=== PATIENT | male | born 1950 | race Two or more races ===

== ENCOUNTER 2019-07-04 14:39 | Outpatient (CLI) | payer MEDICARE, MEDICAID ==
[~2019-07-04] VITALS: Ht 177.8 cm; Wt 114.3 kg
[2019-07-04 15:42] VITALS: BP 119/62
[2019-07-04] MEDS ORDERED: UNOBMED (15:42)
--- NOTE | 2019-07-05 01:00 | Consultation ---
DATE OF CONSULTATION: 07/04/2019 CHIEF COMPLAINT: Endoscopy and colonoscopy. PAST MEDICAL HISTORY: 1. Arthritis. 2. Colon polyps. 3. Gastritis. 4. Hypertension. 5. Diabetes. 6. Hypercholesterolemia. PAST SURGICAL HISTORY: surgery x2, lumbar surgery, shoulder surgery, knee surgery. MEDICATIONS: Please see medication reconciliation list. FAMILY HISTORY: Noncontributory. SOCIAL HISTORY: The patient denies any tobacco, alcohol, or drug abuse. ALLERGIES: Questionable to ketorolac. REVIEW OF SYSTEMS: Positive for abdominal pain and diarrhea. PHYSICAL EXAMINATION: VITAL SIGNS: Temperature 98.9, blood pressure 119/62, pulse is 110, respirations 20. HEENT: Normocephalic and atraumatic. Sclerae anicteric. NECK: Supple. No evidence of obvious lymphadenopathy. CARDIOVASCULAR: Regular rate and rhythm. Plus S1 and S2. No obvious murmur. LUNGS: Clear to auscultation bilaterally. ABDOMEN: Positive bowel sounds. Soft and nontender. No rebound. No guarding. No peritoneal sign. EXTREMITIES: No cyanosis. No clubbing. No edema. ASSESSMENT/PLAN: The patient is a 69-year-old male with past medical history of colonic polyps. Last colonoscopy over 10 years, referred for screening colon, also complaining of chronic GERD. The patient is scheduled for endoscopy and colonoscopy on July 13, 2019. The patient was given instruction for colonoscopy. The procedure was explained to him, the risks and benefits explained. The patient to come on July 13, 2019. I want to thank Dr. Jay for this kind referral. Finesse Babcock M.D. DR: Galilea JOB#: [id number] CC: Wero Jay M.D.
== END 2019-07-04 16:00 | disposition home or self-care (01) ==
LOC: PAN 14:39
DX: K21.9 Gastro-esophageal reflux disease without esophagitis (principal); M19.90 Unspecified osteoarthritis, unspecified site; Z86.010 Personal history of colon polyps; I10 Essential (primary) hypertension; E11.9 Type 2 diabetes mellitus without complications; E78.00 Pure hypercholesterolemia, unspecified

== ENCOUNTER 2019-07-13 11:31 | Day surgery (SDC) | payer MEDICARE, MEDICAID ==
[2019-07-13] VITALS (8 sets, daily range): BP systolic 94–109; BP diastolic 46–70
[~2019-07-13] VITALS: Ht 177.8 cm; Wt 104.3 kg
[~2019-07-13 11:31] MED LIST: LR 1000ml 1,000 ML IV SCH; UNOBMED
[2019-07-13] MEDS ORDERED: LR 1000ml 1,000 ML IVLG SCH (12:14)
[2019-07-13] MEDS ORDERED: Midazolam 2mg/2ml Inj IVP PRN (12:15)
[2019-07-13] MEDS ORDERED: DiphenhydrAMINE 50mg/ml Inj IVP PRN (12:15)
[2019-07-13] MEDS ORDERED: fentaNYL 100 mcg/2 mL IV PRN (12:15)
[2019-07-13] MEDS ORDERED: Atropine Inj 1mg/10ml Syr IV PRN (12:15)
--- NOTE | 2019-07-13 12:19 | Anethesia Preoperative Eval ---
Anesthesia Pre-op PMH/ROS General Date of Evaluation: Jul 13, 2019 Time of Evaluation: 12:02 Anesthesiologist: kate ASA Score: ASA 3 Mallampati Score Class I : Soft palate, uvula, fauces, pillars visible Class II: Soft palate, uvula, fauces visible Class III: Soft palate, base of uvula visible Class IV: Only hard plate visible Mallampati Classification: Class II Surgeon: rylan Diagnosis: gerd Surgical Procedure: egd/colonoscopy Anesthesia History: none Social History: smoking - nonsmoker Family History: no anesthesia problems Allergies: Coded Allergies: No Known Allergies (Unverified , 07/04/19) Medications: see eMAR Patient NPO?: Yes Past Medical History Cardiovascular: Reports: HTN, other - hypercholesterolemia Gastrointestinal/Genitourinary: Reports: GERD, other - colon polyps Neurologic/Psychiatric: Reports: depression/anxiety Endocrine: Reports: DM Musculoskeletal/Integumentary: Reports: OA Anesthesia Pre-op Phys. Exam Physician Exam Constitutional: NAD Neurologic: CN 2-12 intact Cardiovascular: RRR Respiratory: CTA Gastrointestinal: S/NT/ND Airway Exam Mallampati Score: Class II MO: limited Neck: flexible TMD: 2fb ROM: limited Anesthesia Pre-op A/P Studies Pre-op Studies: EKG - unusual p axis, possible ectopic atrial tachycardia with premature supraventricular complexes, lateral infarct Risk Assessment & Plan Assessment: asa3 Plan: mac Status Change Before Surgery: No - patient reports fall trauma 5 days prior to procedure. seen by emergency room doctor. denied loc, altered mental staus. was walking without cane and had a mis-step. patient with large flat ecchymotic lesion on right hip. Pre-Antibiotics Drug: Lisa Myrick MD Jul 13, 2019 12:19
[2019-07-13] MEDS ORDERED: Phenylephrine 10mg/ml Vial ONE (12:30)
[2019-07-13] MEDS ORDERED: Propofol 200mg/20ml IV ONE (12:30)
[2019-07-13] MEDS ORDERED: Lidocaine 1% MPF 10mg/ml 5ml ONE (12:30)
[2019-07-13] MEDS ORDERED: LR 1000ml ONE (12:30)
--- NOTE | 2019-07-13 12:46 | Short Stay Surgery H&P ---
History of Present Illness History of Present Illness Chief Complaint see recent office note HPI Karine Weaver is a 69 year old male who was admitted on for Gerd, Colonoscopy Screening Patient History Allergies: Coded Allergies: No Known Allergies (Unverified , 07/04/19) Medication History Miscellaneous Medications Unable to Obtain Medications (Unable To Obtain Meds), (Reported) Plan Attestation Are the patient's medical conditions optimized for surgery? Finesse Babcock MD Jul 13, 2019 12:46
--- NOTE | 2019-07-13 12:46 | Pre-Procedure Note/Attestation ---
Pre-Procedure Note/Attestation Complete Prior to Procedure Planned Procedure: not applicable Procedure Narrative: esophagogastroduodenoscopy and colonoscopy Indications for Procedure Pre-Operative Diagnosis: screening colon, GERD Attestation I attest that I discussed the nature of the procedure; its benefits; risks and complications; and alternatives (and the risks and benefits of such alternatives ), prior to the procedure, with the patient (or the patient's legal employer relations representative). I attest that, if there was a reasonable possibility of needing a blood transfusion, the patient (or the patient's legal employer relations representative) was given the [facility] standardized written summary, pursuant to the [place] Blood Safety Act ([place] Health and Safety Code # 1645, as amended). I attest that I re-evaluated the patient just prior to the surgery and that there has been no change in the patient's H&P, except as documented below: Finesse Babcock MD Jul 13, 2019 12:46
--- NOTE | 2019-07-13 12:47 | Endoscopy Procedure Note ---
Endoscopy Procedure Note General Indication for Procedure: screening colon, GERD Procedures Performed: EGD, colonoscopy Operative Findings/Diagnosis: gastritis, hemrrhoids Specimen: yes Pt Tolerated Procedure Well: Yes Estimated Blood Loss: none Anesthesia Anesthesiologist: audi Anesthesia: MAC Inserted Devices Implant(s) used?: No Quality Quality of Bowel Preparation: Good Did scope reach the cecum?: Yes Was there any complications?: No GI Core Measures 50 yrs or older w/o bx or poly: No 10yrs. F/U recommended: Yes If not recommended, why?: Above average risk 18 years or older w/prev. colo: No Finesse Babcock MD Jul 13, 2019 12:47
--- NOTE | 2019-07-13 13:45 | Immediate Post-Op Evaluation ---
Immediate Post-Op Evalulation Immediate Post-Op Evalulation Procedure: egd/colonoscopy w/bx Date of Evaluation: Jul 13, 2019 Time of Evaluation: 13:44 IV Fluids: 600ml lr Blood Products: none Estimated Blood Loss: negligible Blood Pressure Systolic: 85 Blood Pressure Diastolic: 43 Pulse Rate: 78 Respiratory Rate: 18 O2 Sat by Pulse Oximetry: 98 Temperature (Fahrenheit): 98.2 Pain Score (1-10): 0 Nausea: No Vomiting: No Complications none Patient Status: awake, reacts, patent Hydration Status: adequate Drug: Lisa Myrick MD Jul 13, 2019 13:45
--- NOTE | 2019-07-13 13:46 | 48 Hour Post Anesthesia Eval ---
Post Anesthesia Evaluation Procedure: egd/colonoscopy w/bx Date of Evaluation: Jul 13, 2019 Time of Evaluation: 13:46 Blood Pressure Systolic: 105 0: 53 Pulse Rate: 86 Respiratory Rate: 18 Temperature (Fahrenheit): 98.2 O2 Sat by Pulse Oximetry: 95 Airway: patent Nausea: No Vomiting: No Pain Intensity: 0 Hydration Status: adequate Cardiopulmonary Status: stable Mental Status/LOC: patient returned to baseline Post-Anesthesia Complications: none Follow-up care needed: N/A Lisa Liang MD Jul 13, 2019 13:46
[2019-07-13] MEDS ORDERED: METFORMIN HCL500 M1 ORAL (14:39)
[2019-07-13] MEDS ORDERED: JANUVIA25 MG ORAL (14:40)
[2019-07-13] MEDS ORDERED: GLIMEPIRIDE4 MG ORAL (14:41)
[2019-07-13] MEDS ORDERED: ACTOS15 MG ORAL (14:41)
[2019-07-13] MEDS ORDERED: FUROSEMIDE40 MG ORAL (14:43)
[2019-07-13] MEDS ORDERED: POTASSIUM CHLOR8 ME2 PO (14:43)
[2019-07-13] MEDS ORDERED: XANAX0.25 MG ORAL (14:45)
[2019-07-13] MEDS ORDERED: MYRBETRIQ50 MG PO (14:49)
[2019-07-13] MEDS ORDERED: FLOMAX0.4 MG ORAL (14:49)
[2019-07-13] MEDS ORDERED: MISOPROSTOL200 MCG PO (14:50)
[2019-07-13] MEDS ORDERED: DICLOFENAC SODI75 MG ORAL (14:53)
[2019-07-13] MEDS ORDERED: FLUTICASONE PRO16 G1 NASAL (14:55)
[2019-07-13] MEDS ORDERED: ALBUTEROL SULF8.5 GM INH (14:57)
[2019-07-13] MEDS ORDERED: VENTOLIN HFA18 GM INH (14:58)
[2019-07-13] MEDS ORDERED: OMEPRAZOLE40 M1 ORAL (14:58)
[2019-07-13] MEDS ORDERED: BREO ELLIPTA 21 EACH IH (15:14)
[2019-07-13] MEDS ORDERED: PAZEO2.5 ML OP (15:15)
[2019-07-13] MEDS ORDERED: LYRICA75 M1 ORAL (15:16)
[2019-07-13] MEDS ORDERED: ATORVASTATIN CA20 MG ORAL (15:18)
[2019-07-13] MEDS ORDERED: LOSARTAN POTASS50 MG ORAL (15:18)
[2019-07-13] MEDS ORDERED: TRAMADOL HCL50 MG ORAL (15:19)
--- NOTE | 2019-07-13 18:15 | Procedure Note ---
DATE OF PROCEDURE: 07/13/2019 SURGEON: Finesse Babcock M.D. PROCEDURE: Upper endoscopy with biopsy and colonoscopy. ANESTHESIA: Per Dr. Mendez. INSTRUMENT: Olympus adult flexible upper endoscope and colonoscope. INDICATION: Screening colonoscopy evaluation, chronic GERD. REASON FOR PROCEDURE: The procedure, risks, benefits, and possible consequences, including hemorrhage, aspiration, perforation and infection, and alternative treatments, were explained to the patient/legal guardian by Dr. Finesse Babcock and the patient/legal guardian understood and accepted these risks. DESCRIPTION OF PROCEDURE: After informed consent was obtained and the patient was adequately sedated, Olympus upper endoscope was advanced from mouth into the second portion of the duodenum and retroflexion was performed in the stomach. The patient has diffuse gastritis. Random biopsy from antrum was obtained to rule out H. pylori infection. Otherwise, the rest of the upper endoscopy examination grossly within normal limits. At this time, the upper endoscope was retrieved. The patient turned over for colonoscopy. First rectal exam was performed, which was normal. Then, the scope was passed from the rectum into cecum documented by appendiceal orifice, ileocecal valve, and right upper quadrant palpation. Quality of prep was fair. Unfortunately examination of the cecum was limited given there was some stool appeared in the cecum and the right colon. During this procedure, the patient became hypotensive up to about 80 systolic, so we had to kind of chen it colonoscopy safely. So, we did not see any obvious polyp, obvious mass in this colonoscopy examination. There was some scattered diverticula in the left colon, but no obvious diverticulitis. Retroflexion of the rectum showed evidence of internal hemorrhoids. SUMMARY OF FINDINGS: 1. Gastritis, status post biopsy. 2. Diverticulosis. 3. Internal hemorrhoids. 4. Given the prep in the right colon and given that the patient was hypotensive, we have to kind of chen the procedure. We recommend repeat colonoscopy no later than 3 years. Finesse Babcock M.D. DR: MOLLY JOB#: [id number] CC:
== END 2019-07-13 15:00 | disposition home or self-care (01) ==
LOC: GAS 11:31
DX: Z12.11 Encounter for screening for malignant neoplasm of colon (principal); K21.9 Gastro-esophageal reflux disease without esophagitis; K64.8 Other hemorrhoids; K29.70 Gastritis, unspecified, without bleeding; K57.90 Diverticulosis of intestine, part unspecified, without perforation or abscess without bleeding; I10 Essential (primary) hypertension; E78.00 Pure hypercholesterolemia, unspecified; Z86.010 Personal history of colon polyps; E11.9 Type 2 diabetes mellitus without complications; M19.90 Unspecified osteoarthritis, unspecified site; F41.9 Anxiety disorder, unspecified; I95.9 Hypotension, unspecified
CPT/HCPCS: 43239; 93005; G0121; J2370; J2704; J7120; 94003; 94150